=== PATIENT | female | born 1985 | race Caucasian/White ===

== ENCOUNTER 2023-03-19 16:57 | Inpatient (IN) | payer OTHER ==
[~2023-03-19] VITALS: Ht 157.5 cm; Wt 100.0 kg
[2023-03-19] MEDS ORDERED: NICOTINE 21MG/24HR 1 EA TRANSDERMAL TD PRN (18:35)
[2023-03-19] MEDS ORDERED: MAALOX 30 ML SUSP *UDC PO PRN (18:35)
[2023-03-19] MEDS ORDERED: ACETAMINOPHEN TAB 650MG DOSE (2X325MG) PO PRN (18:35)
[2023-03-19] MEDS ORDERED: IBUPROFEN 400MG TAB PO PRN (18:35)
[2023-03-19] MEDS ORDERED: MOM 30ML SUSPENSION UDC PO PRN (18:35)
[2023-03-19] MEDS ORDERED: diphenhydrAMINE 25MG CAP PO PRN (18:35)
[2023-03-19] MEDS ORDERED: LEXA1TAB PO (20:03)
[2023-03-19] MEDS ORDERED: BUPR300T92 PO (20:03)
[2023-03-19] MEDS ORDERED: HYDR50TA70 PO (20:03)
[2023-03-19] MEDS ORDERED: TRAZ-252 PO (20:03)
[2023-03-19] MEDS ORDERED: BAYE325T13 PO (20:03)
[2023-03-19] MEDS ORDERED: CLON-412 PO (20:03)
[2023-03-19] MEDS ORDERED: SUMA50TA2 PO (20:03)
[2023-03-19] MEDS ORDERED: VITA100093 PO (20:03)
[2023-03-19] MEDS ORDERED: NICO1DIS12 TOP (20:03)
[2023-03-19] MEDS ORDERED: VITMTA PO (20:07)
[2023-03-19] MEDS ORDERED: HOME MED LIST COMPLETE! XX SCH (20:15)
[2023-03-19 22:30] VITALS: BP 146/82; TEMP 96.8; O2SAT 99
[2023-03-19] MEDS: traZODone 50 MG TAB PO PRN (22:56)
[2023-03-19] MEDS: cloNIDine 0.1MG TABLET PO PRN (23:00)
[2023-03-20 06:28] VITALS: BP 109/68; TEMP 96.8; O2SAT 97
[2023-03-20] MEDS: NICOTINE 21MG/24HR 1 EA TRANSDERMAL TD SCH (09:59)
[2023-03-20] MEDS ORDERED: SUMAtriptan SUCCINATE 25 MG TAB PO PRN (11:10)
[2023-03-20] MEDS: ASPIRIN 325 MG TAB PO SCH (11:33)
[2023-03-20] MEDS: ESCITALOPRAM OXALATE 10 MG TAB (LEXAPRO) PO SCH (11:33)
[2023-03-20] MEDS: buPROPion **XL** TABLET 150MG (WELLBUTRIN XL) PO SCH (11:33)
[2023-03-20] MEDS: MULTIVITAMINS/MINERALS THERAP 1 TAB PO SCH (11:33)
[2023-03-20] MEDS: VITAMIN D 1,000 INTERNATIONAL UNITS TABLET PO SCH (11:34)
[2023-03-20 17:11] VITALS: BP 131/80; TEMP 97.5
[2023-03-20] MEDS: traZODone 50 MG TAB PO PRN (20:32)
[2023-03-20] MEDS: cloNIDine 0.1MG TABLET PO PRN (20:35)
[2023-03-21 06:33] VITALS: BP 109/59; TEMP 97
[2023-03-21] MEDS ORDERED: NICOTINE 21MG/24HR 1 EA TRANSDERMAL TOP SCH (09:00)
[2023-03-21] MEDS: NICOTINE 21MG/24HR 1 EA TRANSDERMAL TD SCH (09:10)
[2023-03-21] MEDS: VITAMIN D 1,000 INTERNATIONAL UNITS TABLET PO SCH (09:10)
[2023-03-21] MEDS: MULTIVITAMINS/MINERALS THERAP 1 TAB PO SCH (09:10)
[2023-03-21] MEDS: ASPIRIN 325 MG TAB PO SCH (09:10)
[2023-03-21] MEDS: ESCITALOPRAM OXALATE 10 MG TAB (LEXAPRO) PO SCH (09:10)
[2023-03-21] MEDS: buPROPion **XL** TABLET 150MG (WELLBUTRIN XL) PO SCH (09:10)
[2023-03-21] MEDS: hydrOXYzine 50 MG TAB PO PRN (09:12)
[2023-03-21 17:35] VITALS: BP 144/81; TEMP 97.3
[2023-03-21] MEDS: traZODone 50 MG TAB PO PRN (21:12)
[2023-03-21] MEDS: cloNIDine 0.1MG TABLET PO PRN (21:12)
[2023-03-22 06:30] VITALS: BP 90/54; TEMP 97; O2SAT 98
[2023-03-22 08:30] VITALS: BP 90/54; TEMP 97; O2SAT 98
[2023-03-22] MEDS: VITAMIN D 1,000 INTERNATIONAL UNITS TABLET PO SCH (08:40)
[2023-03-22] MEDS: ASPIRIN 325 MG TAB PO SCH (08:40)
[2023-03-22] MEDS: ESCITALOPRAM OXALATE 10 MG TAB (LEXAPRO) PO SCH (08:41)
[2023-03-22] MEDS: MULTIVITAMINS/MINERALS THERAP 1 TAB PO SCH (08:41)
[2023-03-22] MEDS: hydrOXYzine 50 MG TAB PO PRN (08:41)
[2023-03-22] MEDS: buPROPion **XL** TABLET 150MG (WELLBUTRIN XL) PO SCH (08:41)
[2023-03-22] MEDS: NICOTINE 21MG/24HR 1 EA TRANSDERMAL TD SCH (08:42)
[2023-03-22] MEDS: traZODone 50 MG TAB PO PRN (20:50)
[2023-03-22] MEDS: cloNIDine 0.1MG TABLET PO PRN (20:50)
[2023-03-23 06:09] VITALS: BP 107/55; TEMP 98.7; O2SAT 100
[2023-03-23] MEDS: hydrOXYzine 50 MG TAB PO PRN (08:10)
[2023-03-23] MEDS: ESCITALOPRAM OXALATE 10 MG TAB (LEXAPRO) PO SCH (08:12)
[2023-03-23] MEDS: ASPIRIN 325 MG TAB PO SCH (08:12)
[2023-03-23] MEDS: buPROPion **XL** TABLET 150MG (WELLBUTRIN XL) PO SCH (08:12)
[2023-03-23] MEDS: MULTIVITAMINS/MINERALS THERAP 1 TAB PO SCH (08:12)
[2023-03-23] MEDS: VITAMIN D 1,000 INTERNATIONAL UNITS TABLET PO SCH (08:12)
[2023-03-23] MEDS: NICOTINE 21MG/24HR 1 EA TRANSDERMAL TD SCH (08:14)
[2023-03-23 16:13] VITALS: BP 116/56; TEMP 97.7; O2SAT 96
[2023-03-23 21:02] VITALS: BP 122/67
[2023-03-23] MEDS: cloNIDine 0.1MG TABLET PO PRN (21:02)
[2023-03-23] MEDS: traZODone 50 MG TAB PO PRN (21:02)
[2023-03-24 06:33] VITALS: BP 116/61; TEMP 97.6; O2SAT 99
[2023-03-24] MEDS: buPROPion **XL** TABLET 150MG (WELLBUTRIN XL) PO SCH (08:19)
[2023-03-24] MEDS: ESCITALOPRAM OXALATE 10 MG TAB (LEXAPRO) PO SCH (08:19)
[2023-03-24] MEDS: MULTIVITAMINS/MINERALS THERAP 1 TAB PO SCH (08:19)
[2023-03-24] MEDS: VITAMIN D 1,000 INTERNATIONAL UNITS TABLET PO SCH (08:19)
[2023-03-24] MEDS: ASPIRIN 325 MG TAB PO SCH (08:19)
[2023-03-24] MEDS: NICOTINE 21MG/24HR 1 EA TRANSDERMAL TD SCH (08:21)
[2023-03-24] MEDS ORDERED: LEXA1TAB PO (08:57)
[2023-03-24] MEDS ORDERED: BUPR300T92 PO (08:57)
[2023-03-24] MEDS: hydrOXYzine 50 MG TAB PO PRN (09:20)
== END 2023-03-24 13:29 | DRG 756 ==
LOC: M ED 16:57 → M ED INP 18:34 → M PSY 21:57
PROVIDERS: ADMIT Student in an Organized Health Care Education/Training Program; ATTEND Student in an Organized Health Care Education/Training Program
DX: F41.1 Generalized anxiety disorder (principal); F60.3 Borderline personality disorder; F60.89 Other specific personality disorders; F14.90 Cocaine use, unspecified, uncomplicated; Z79.82 Long term (current) use of aspirin; Z79.899 Other long term (current) drug therapy; E03.9 Hypothyroidism, unspecified; E66.9 Obesity, unspecified; F17.200 Nicotine dependence, unspecified, uncomplicated; D68.61 Antiphospholipid syndrome